=== PATIENT | male | born 2000 | race Caucasian/White ===

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

== ENCOUNTER 2023-07-23 08:41 | Emergency (ER) | payer BC, OTHER ==
[~2023-07-23] VITALS: Ht 175.3 cm; Wt 52.4 kg
[2023-07-23 08:43] VITALS: BP 133/73
[2023-07-23 09:58] VITALS: O2SAT 97
[2023-07-23 10:20] LABS: RSV AMPLIFICATION NEGATIVE (NEGATIVE)
== END 2023-07-23 11:09 | disposition home or self-care (01) ==
LOC: M ED 08:41
DX: U07.1 COVID-19 (principal); Z77.098 Contact with and (suspected) exposure to other hazardous, chiefly nonmedicinal, chemicals